=== PATIENT | male | born 1945 | race Caucasian/White ===

== ENCOUNTER 2019-07-30 11:19 | Outpatient (CLI) | payer OTHER | END 2019-07-30 11:20 | disposition critical access hospital (66) | LOC: EMS 11:19 | PROVIDERS: ATTEND Surgery | DX: R10.9 Unspecified abdominal pain (principal); R11.10 Vomiting, unspecified | CPT/HCPCS: A0425; A0429 ==

== ENCOUNTER 2019-07-30 11:49 | Emergency (ER) | payer OTHER ==
[2019-07-30 12:27] LABS: BASOPHILS % (AUTO) 0.3 %; EOSINOPHILS % (AUTO) 0.3 %; HGB - HEMOGLOBIN 12.5 g/dL (14.0-18.0); LYMPHOCYTES % (AUTO) 0.2 %; MEAN CORPUSCULAR HEMOGLOBIN 25.8 pg (27.0-31.0); MEAN CORPUSCULAR HGB CONC 31.6 g/dL (32.0-36.0); MEAN CORPUSCULAR VOLUME 81.6 fL (80.0-94.0); MONOCYTES % (AUTO) 4.4 %; NEUTROPHILS % (AUTO) 93.9 %; PLT - PLATELET COUNT 183 10^3/uL (130-450); RED BLOOD COUNT 4.84 10^6/uL (4.70-6.10); RED CELL DISTRIBUTION WIDTH 14.5 % (12.0-15.0); WHITE BLOOD COUNT 26.6 x10^3/uL (4.8-10.8)
[2019-07-30 12:33] LABS: ABNORMAL LYMPHS % (MANUAL) 0 %
[2019-07-30 12:36] LABS: ALBUMIN 3.6 g/dL (3.2-5.5); ALBUMIN/GLOBULIN RATIO 1.1 (1.0-2.2); BILIRUBIN,TOTAL 0.9 mg/dL (0.2-1.0); CALCIUM 9.2 mg/dL (8.5-10.3); CREATININE 1.3 mg/dL (0.6-1.2); TOTAL PROTEIN 6.8 g/dL (6.7-8.2)
[2019-07-30] MEDS ORDERED: SODIUM CHLORIDE 0.9% 1,000 ML IV ONE ×2 (12:42→14:52)
[2019-07-30] MEDS ORDERED: HYDROmorphone 1 MG/ML CARPUJECT IVP STA (12:42)
[2019-07-30] MEDS ORDERED: ONDANSETRON 4 MG/2 ML VIAL IVP STA (12:42)
--- NOTE | 2019-07-30 12:55 | ED Physician Documentation ---
PD HPI ABD PAIN - Stated complaint Stated Complaint: ABD PX - Chief complaint Chief Complaint: Abd Pain - History obtained from History obtained from: Patient (74-year-old gentleman with history of coronary disease and stenting, COPD, and diagnosis of esophageal cancer few months ago status post radiation therapy, being planned for chemotherapy starting tomorrow. Starting last night he had shaking chills and severe upper abdominal pain with a productive cough and a headache. He has lidocaine at home which was fleetingly helpful with the abdominal pain. He has been having dry heaves.) Review of Systems Ten Systems: 10 systems reviewed and negative Constitutional: reports: Fever, Chills, Myalgias, Fatigue Throat: denies: Sore throat Cardiac: denies: Chest pain / pressure, Palpitations Respiratory: reports: Cough. denies: Dyspnea GI: reports: Abdominal Pain, Nausea, Vomiting. denies: Constipation, Diarrhea PD PAST MEDICAL HISTORY - Past Medical History Past Medical History: Yes Cardiovascular: Coronary artery disease Respiratory: COPD GI: Other (esophageal CA) Other Past Medical History: esphageal cancer - Past Surgical History Ortho: Other (R bicep repair) - Present Medications Home Medications: Ambulatory Orders Medication Instructions Recorded Confirmed Albuterol 90 mcg IN PRN PRN 07/20/19 07/20/19 Aspirin EC [Ecotrin] 07/20/19 Aspirin [Aspirin EC] 81 mg PO DAILY 07/20/19 07/20/19 Atorvastatin [Lipitor] 40 mg PO BID 07/20/19 07/20/19 Clopidogrel [Plavix] 75 mg PO DAILY 07/20/19 07/20/19 Furosemide 20 mg PO DAILY 07/20/19 07/20/19 Hydrocodone/Acetaminophen 325 mg PO PRN PRN 07/20/19 07/20/19 [Hydrocodone-Acetamin 10-300 mg] Lisinopril 40 mg PO DAILY 07/20/19 07/20/19 Metoprolol Succinate 50 mg PO DAILY 07/20/19 07/20/19 Ondansetron [Ondansetron Odt] 8 mg PO PRN PRN 07/20/19 07/20/19 Promethazine [Phenergan] 25 mg PO Q6HR 07/20/19 07/20/19 Tamsulosin [Flomax] 0.4 mg PO BID 07/20/19 07/20/19 amLODIPine [Norvasc] 2.5 mg PO DAILY 07/20/19 07/20/19 metFORMIN [Glucophage] 500 mg PO BID 07/20/19 07/20/19 - Allergies Allergies/Adverse Reactions: Allergies Allergy/AdvReac Type Severity Reaction Status Date / Time Penicillins Allergy Respiratory Verified 07/30/19 12:14 - Social History Does the pt smoke?: No Smoking Status: Former smoker Does the pt drink ETOH?: No Does the pt have substance abuse?: No PD ED PE NORMAL - Vitals Vital signs reviewed: Yes (tachycardic, soft BP, high normal temp) - General General: Alert and oriented X 3, Other (uncomfortable) - HEENT HEENT: PERRL, EOMI, Pharynx benign - Neck Neck: Supple, no meningeal sign, No bony TTP - Cardiac Cardiac: RRR, No murmur - Respiratory Respiratory: No respiratory distress, Other (wheezy at bases) - Abdomen Abdomen: Normal bowel sounds, Soft, Other (Minimal upper abdominal tenderness) - Back Back: No CVA TTP, No spinal TTP - Derm Derm: Normal color, Warm and dry - Extremities Extremities: No edema, No calf tenderness / cord Results - Vitals Vitals: Vital Signs - 24 hr 07/30/19 07/30/19 07/30/19 11:56 13:20 13:23 Temperature 37.8 C H 37.8 C H Heart Rate 110 H 96 Respiratory 16 20 Rate Blood Pressure 106/43 L 117/46 L O2 Saturation 95 82 L 95 07/30/19 07/30/19 14:41 14:59 Temperature 37.1 C Heart Rate 91 95 Respiratory 18 20 Rate Blood Pressure 132/40 H 111/47 L O2 Saturation 91 L 97 Oxygen O2 Source Room air - Labs Labs: Laboratory Tests 07/30/19 07/30/19 07/30/19 12:16 12:16 12:52 WBC 26.6 H RBC 4.84 Hgb 12.5 L Hct 39.5 L MCV 81.6 MCH 25.8 L MCHC 31.6 L RDW 14.5 Plt Count 183 MPV 9.0 Neut # (Auto) Not Reportable Lymph # (Auto) Not Reportable Sierra # (Auto) Not Reportable Eos # (Auto) Not Reportable Baso # (Auto) Not Reportable Absolute Nucleated RBC Not Reportable Total Counted 100 Band Neuts % (Manual) 8 Abnorm Lymph % (Manual) 0 Nucleated RBC % Not Reportable Neutrophils # (Manual) 25.5 H Lymphocytes # (Manual) 0.3 L Monocytes # (Manual) 0.5 Eosinophils # (Manual) 0.3 Basophils # (Manual) 0.0 Differential Comment MANUAL DIFFERENTIAL WBC Morphology NORMAL APPEARANCE Platelet Estimate NORMAL (130-450,000) Platelet Morphology NORMAL APPEARANCE RBC Morph Micro Appear 1+ OVALOCYTES Sodium 137 Potassium 4.0 Chloride 101 Carbon Dioxide 24 Anion Gap 12.0 BUN 16 Creatinine 1.3 H Estimated GFR (MDRD) 54 L Glucose 175 H Lactic Acid 1.8 Calcium 9.2 Total Bilirubin 0.9 AST 20 ALT 17 Alkaline Phosphatase 68 Total Protein 6.8 Albumin 3.6 Globulin 3.2 Albumin/Globulin Ratio 1.1 Lipase 17 L - Rads (name of study) 2v chest Radiology: EMP read contemporaneously (normal) CT A/P Radiology: EMP read contemporaneously (Distended gallbladder with apparent wall thickening. No obvious stones. Suspicious liver lesions for metastatic disease. Enlarged lower mediastinal and gastrohepatic lymph nodes have increased and may represent metastatic disease. Thickened distal esophagus and upper stomach. Diverticulosis without diverticulitis.) Procedures - General procedure General procedure: He was difficult for IV access, both the proposal editor and the nurse it failed prior to my evaluation. I personally placed a long 22-gauge IV after ChloraPrep in the right deep brachial vein using real-time ultrasound guidance that flushed and marcio well. 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 With metastatic retroperitoneal adenopathy. He is being planned for palliative chemotherapy with FOLFOX 6 starting tomorrow.) ED course: 74-year-old gentleman presents with severe upper abdominal pain. Initially and imaging concerning for cholecystitis and this was followed by ultrasound. We also got blood cultures and a lactate given his high white count and fever at home. He was administered levofloxacin and Flagyl after blood cultures. [facility] will need [facility] tube given his comorbidities and Plavix use. They were full per Lizy there and could not accept him in transfer. I did discuss the case with Dr. Cristino Jin here, the on-call surgeon who agreed that he would need an IR procedure as opposed to a cholecystectomy given his comorbidities. He was accepted by the surgeon, Dr. Audrey Hoang at 3:20 PM and cobras were completed. He is stable for transport to a higher level of care for potential IR drainage. Departure - Departure Disposition: 02 Transfer Acute Care Hosp Clinical Impression: Cholecystitis, Platelet inhibition due to Plavix Gastric malignant neoplasm Qualifiers: Malignant neoplasm of stomach location: unspecified location Qualified Code(s): C16.9 - Malignant neoplasm of stomach, unspecified Condition: Serious
[2019-07-30] MEDS ORDERED: IOVERSOL 320 100 ML VIAL IVP ONE ×2 (12:59→13:18)
[2019-07-30 13:06] LABS: BAND NEUTROPHILS % (MANUAL) 8 %; EOSINOPHILS # (MANUAL) 0.3 10^3/uL (0-0.7); LYMPHOCYTES # (MANUAL) 0.3 10^3/uL (1.5-3.5); LYMPHOCYTES % (MANUAL) 1 %; MONOCYTES # (MANUAL) 0.5 10^3/uL (0.0-1.0)
[2019-07-30 13:13] LABS: DIFFERENTIAL COMMENT MANUAL DIFFERENTIAL; PLATELET ESTIMATE, MANUAL NORMAL (130-450,000) (NORMAL); PLATELET MORPHOLOGY NORMAL APPEARANCE (NORMAL); RBC MORPHOLOGY (MULTIPLE) 1+ OVALOCYTES (NORMAL)
[2019-07-30] MEDS ORDERED: levoFLOXacin 750 MG/150 ML 750 MG/150 ML BAG IV ONE (13:15)
[2019-07-30] MEDS ORDERED: metroNIDAZOLE 500 MG/100 ML 500 MG/100 ML BAG IV ONE (13:15)
[2019-07-30] MEDS ORDERED: ACETAMINOPHEN 1,000 MG/100 ML 100 ML IV STA (13:39)
--- NOTE | 2019-07-30 13:43 | XRAY Report ---
Reason: cough fever Procedure Date: 07/30/2019 Accession Number: [id number] / [id number] Procedure: XR - Chest 2 View X-Ray CPT Code: 63377 FULL RESULT: EXAM: CHEST RADIOGRAPHY EXAM DATE: 07/30/2019 01:04 PM. CLINICAL HISTORY: Cough, fever. COMPARISON: XR CHEST 2 VIEWS 02/05/2019 2:11 AM. TECHNIQUE: 2 views. FINDINGS: Lungs/Pleura: No focal opacities evident. No pleural effusion. No pneumothorax. Normal volumes. Mediastinum: Heart and mediastinal contours are unremarkable. Other: None. IMPRESSION: No acute cardiopulmonary process. RADIA
--- NOTE | 2019-07-30 14:08 | CT Report ---
Reason: IV only, upper abd pain Procedure Date: 07/30/2019 Accession Number: [id number] / [id number] Procedure: CT - Abdomen/Pelvis W CPT Code: FULL RESULT: EXAM: CT ABDOMEN AND PELVIS EXAM DATE: 07/30/2019 01:17 PM. CLINICAL HISTORY: IV only, upper abd pain. COMPARISONS: CHEST 2 VIEW 07/30/2019 12:49 PM VASCULAR PE STUDY (ADULT) 02/05/2019 2:53 AM. TECHNIQUE: Routine helical CT imaging was performed through the abdomen and pelvis. IV contrast: OPTI 320 90ML. Enteric contrast: No. Reconstructions: Coronal and sagittal. In accordance with CT protocol optimization, one or more of the following dose reduction techniques were utilized for this exam: automated exposure control, adjustment of mA and/or KV based on patient size, or use of iterative reconstructive technique. FINDINGS: Lower chest: There is an enlarged lower mediastinal lymph node that is increased from prior measuring about 1.5 cm in short axis (image 11/3). Mildly thickened distal esophagus. Liver: A hypoattenuating lesion near the medial dome measures 3.3 x 3.1 cm, not definitely present on the CT PE from 02/05/2019. There is a 1.7 cm lesion in the posterior right liver (image 16). Hypoattenuating lesion with similar appearance to the others in the inferior right liver tip measures 3.3 x 2.2 cm (image 32). Gallbladder/Bile Ducts: The gallbladder is distended. The wall appears thickened. No adjacent inflammation. No stones visualized by CT. No bile duct dilation. Spleen: Normal. Pancreas: Moderate atrophy. Adrenal Glands: Normal. Kidneys: Nephrosis. Mild perinephric stranding may be senescent. Peritoneal Cavity/Bowel: Small hiatal hernia. Fundus and upper body of the stomach are mildly thickened. No evidence of a bowel obstruction. There is diverticulosis of the colon without diverticulitis. Normal appendix. No free fluid or free air. There is no enlarged upper abdominal gastrohepatic lymph node that measures 1.5 cm (14/3). No definite mass. No acute inflammatory process. The appendix is well visualized and normal. Pelvic Organs: The bladder and prostate gland are unremarkable. Vasculature: Moderate to severe atherosclerosis. No aortic aneurysm. Bones: Multilevel degenerative changes in the spine. Other: Mild stranding/edema in the right ventral body wall. IMPRESSION: 1. Distended gallbladder with apparent wall thickening. No stones visualized by CT. This could be further evaluate with ultrasound. 2. There are several indeterminate/suspicious liver lesions. The lesion in the medial dome was not definitely present on a CT chest from 02/05/2019. These could represent metastatic disease. 3. Enlarged lower mediastinal and gastrohepatic lymph nodes have increased and may represent metastatic disease. Thickened distal esophagus and upper stomach, nonspecific though neoplasm is not excluded. 4. Diverticulosis without diverticulitis. RADIA
[2019-07-30] MEDS ORDERED: fentaNYL 100 MCG/2 ML VIAL IVP STA (14:52)
--- NOTE | 2019-07-30 15:34 | Ultrasound Report ---
Reason: upper abd pain Procedure Date: 07/30/2019 Accession Number: [id number] / [id number] Procedure: US - Abdomen Limited CPT Code: FULL RESULT: EXAM: ABDOMEN ULTRASOUND LIMITED, RUQ EXAM DATE: 07/30/2019 02:48 PM. CLINICAL HISTORY: Upper abd pain. COMPARISON: ABDOMEN/PELVIS W/ 07/30/2019 1:11 PM. TECHNIQUE: Real-time scanning was performed with static images obtained. FINDINGS: Liver: Mildly inhomogeneous, increased echogenicity, suggesting diffuse fatty infiltration.There are multiple hypoechoic hepatic lesions corresponding to the CT findings measuring up to 8 x 8 x 10 mm in the left hepatic lobe and 34 x 27 x 33 mm in the right hepatic lobe. Liver measures 19.4 cm craniocaudally. Main portal vein flow: Hepatopetal. Gallbladder: Moderate nonspecific gallbladder wall thickening.Echogenic nonvascular mobile dependent debris suggestive of tumefactive sludge.Sonographic Zhou sign is present, per technologist's notes. Biliary System: Common bile duct measures 4.4 mm. No intrahepatic ductal dilatation. Pancreas: Visualized portion is unremarkable. Right Kidney: 12.2 cm longitudinally. Normal echotexture.No hydronephrosis.No contour-deforming mass.No calculus. Other: IMPRESSION: 1. Moderate gallbladder wall thickening. Probable tumefactive sludge. Positive sonographic Zhou's sign, per technologist notes. Correlate clinically for evidence of acute cholecystitis. Nuclear medicine hepatobiliary imaging could be considered for further imaging evaluation if clinically warranted. 2. Common bile duct is normal caliber. 3. Multiple hypoechoic liver lesions, corresponding to lesion seen by CT. These are of indeterminate etiology but could represent metastatic disease. 4. Mildly enlarged, probably fatty liver. RADIA
[2019-07-30 16:05] VITALS: BP 115/50
== END 2019-07-30 16:20 | disposition short-term general hospital (02) ==
LOC: EDUNIT# → ED 11:49
DX: K81.9 Cholecystitis, unspecified (principal); C16.9 Malignant neoplasm of stomach, unspecified; C15.9 Malignant neoplasm of esophagus, unspecified; Z79.02 Long term (current) use of antithrombotics/antiplatelets; Z87.891 Personal history of nicotine dependence
CPT/HCPCS: 36415; 71046; 74177; 76705; 80053; 83605; 83690; 85025; 87040; 87181; 96365; 96367; 96375; 99285; J0131; J1170; Q9967

== ENCOUNTER 2019-07-30 16:21 | Outpatient (CLI) | payer OTHER | END 2019-07-30 16:22 | disposition home or self-care (01) | LOC: EMS 16:21 | PROVIDERS: ATTEND Surgery | DX: K81.9 Cholecystitis, unspecified (principal) | CPT/HCPCS: A0425; A0426 ==